=== PATIENT | female | born 1995 | race Caucasian/White ===

== ENCOUNTER 2017-11-23 08:56 | Emergency (ER) | payer OTHER ==
[2017-11-23] MEDS: IBUPROFEN 800 MG TAB PO (09:25)
== END 2017-11-23 10:15 | disposition home or self-care (01) ==
LOC: FTE 08:56
DX: S89.92XA Unspecified injury of left lower leg, initial encounter (principal); V00.131A Fall from skateboard, initial encounter; Y92.9 Unspecified place or not applicable
CPT/HCPCS: 73562; 99283-25

== ENCOUNTER 2017-12-07 22:40 | Emergency (ER) | payer OTHER | END 2017-12-08 02:15 | disposition left against medical advice (07) | LOC: FTE 22:40 | DX: R09.89 Other specified symptoms and signs involving the circulatory and respiratory systems (principal); F17.210 Nicotine dependence, cigarettes, uncomplicated | CPT/HCPCS: 70360; 71045; 99284-25 ==